=== PATIENT | female | born 1945 | race Caucasian/White ===

== ENCOUNTER 2023-02-28 15:51 | Inpatient (IN) | payer MEDICARE, OTHER ==
[2023-02-28] MEDS ORDERED: Acetaminophen 325 MG TAB PO PRN (18:22)
[2023-02-28] MEDS ORDERED: HYDROcodone/Acetaminophen 5/325 mg Tablet PO PRN (18:22)
[2023-02-28] MEDS ORDERED: Lactated Ringer's 1,000 ML IV SCH (18:30)
[2023-02-28] MEDS ORDERED: Piperacillin/Tazobactam 3.375 GM in Sodium Chloride 0.9% 100 ML IVPB SCH ×2 (18:30→20:00)
[2023-02-28 18:33] VITALS: BMI 26.3
[2023-02-28] MEDS ORDERED: Potassium Chloride 20 MEQ TAB PO SCH ×2 (19:15→21:00)
[2023-02-28] MEDS ORDERED: Gentamicin 360 MG in Sodium Chloride 0.9% 100 ML IVPB SCH (20:00)
[2023-02-28] MEDS: Sodium Chloride 0.9% 1,000 ML IV SCH (20:20)
[2023-02-28] MEDS: Clindamycin/D5W 900 MG in Premix 1 BAG IVPB SCH (22:38)
[2023-02-28] MEDS: Piperacillin/Tazobactam 3.375 GM in Sodium Chloride 0.9% 100 ML IVPB SCH (23:37)
[2023-03-01 05:19] LABS: #Eosinphils 0.2 10x3/uL (0.0-0.5); #Monocytes 0.3 10x3/uL (0.0-1.1); #Neutrophils 5.6 10x3/uL (1.5-8.4); %Basophils 0.3 % (0.0-2.0); %Eosinophils 2.6 % (0.0-6.0); %Lymphocytes 6.4 % (18.0-47.0); %Monocytes 4.4 % (0.0-10.0); %Neutrophils 85.7 % (40.0-75.0); Hemoglobin 9.3 g/dL (12.0-15.5); Mean Corpuscular HGB CONC 33.2 g/dL (32.0-36.0); Mean Corpuscular Hemoglobin 30.8 pg (27.0-33.0); Mean Corpuscular Volume 92.7 fl (81.6-98.3); Mean Platelet Volume 9.7 fl (7.4-10.4); Platelet Count 297 10x3/uL (150-450); RBC Distribution Width 13.5 % (11.5-14.5); Red Blood Cell (RBC) Count 3.02 10x6/uL (3.90-5.03); White Blood Cell (WBC) Count 6.6 10x3/uL (3.5-10.5)
[2023-03-01 05:28] LABS: Anion Gap 14 mmol/L (10-20); BUN (Urea Nitrogen) 8 mg/dL (9.8-20.1); Calc. Creatinine Clearance 79 mL/min (70-130); Calcium 7.7 mg/dL (7.8-10.44); Carbon Dioxide 22 mmol/L (23-31); Chloride 106 mmol/L (98-107); Estimated GFR 87; Gentamicin, Random 3.6 ug/mL (See Comment); Glucose 88 mg/dL (83-110); Potassium 3.9 mmol/L (3.5-5.1); Sodium 138 mmol/L (136-145)
[2023-03-01] MEDS: Sodium Chloride 0.9% 1,000 ML IV SCH ×3 (06:26→22:24)
[2023-03-01] MEDS: Clindamycin/D5W 900 MG in Premix 1 BAG IVPB SCH ×3 (06:28→22:23)
[2023-03-01] MEDS: Piperacillin/Tazobactam 3.375 GM in Sodium Chloride 0.9% 100 ML IVPB SCH ×2 (08:17→16:01)
[2023-03-01] MEDS: Gentamicin 360 MG in Sodium Chloride 0.9% 100 ML IVPB SCH (20:58)
[2023-03-02] MEDS: Piperacillin/Tazobactam 3.375 GM in Sodium Chloride 0.9% 100 ML IVPB SCH ×3 (00:05→16:36)
[2023-03-02] MEDS: Clindamycin/D5W 900 MG in Premix 1 BAG IVPB SCH ×3 (05:51→22:59)
[2023-03-02 08:50] LABS: #Eosinphils 0.2 10x3/uL (0.0-0.5); #Monocytes 0.3 10x3/uL (0.0-1.1); %Basophils 0.2 % (0.0-2.0); %Lymphocytes 10.3 % (18.0-47.0); %Neutrophils 80.5 % (40.0-75.0); Hematocrit 29.1 % (34.9-44.5); Hemoglobin 9.3 g/dL (12.0-15.5); Mean Corpuscular Hemoglobin 29.9 pg (27.0-33.0); Mean Corpuscular Volume 93.6 fl (81.6-98.3); Mean Platelet Volume 9.3 fl (7.4-10.4); Platelet Count 301 10x3/uL (150-450); RBC Distribution Width 13.7 % (11.5-14.5); Red Blood Cell (RBC) Count 3.11 10x6/uL (3.90-5.03); White Blood Cell (WBC) Count 6.2 10x3/uL (3.5-10.5)
[2023-03-02 10:31] LABS: ALT (SGPT) 8 U/L (8-55); AST (SGOT) 17 U/L (5-34); Alkaline Phosphatase 79 U/L (40-110); Anion Gap 10 mmol/L (10-20); BUN (Urea Nitrogen) 6 mg/dL (9.8-20.1); Bilirubin, Total 0.7 mg/dL (0.2-1.2); Calc. Creatinine Clearance 74 mL/min (70-130); Calcium 7.9 mg/dL (7.8-10.44); Carbon Dioxide 25 mmol/L (23-31); Chloride 107 mmol/L (98-107); Estimated GFR 80; Globulin 2.6 g/dL (2.4-3.5); Glucose 109 mg/dL (83-110); Potassium 3.4 mmol/L (3.5-5.1); Protein, Total 5.6 g/dL (5.8-8.1); Sodium 139 mmol/L (136-145)
[2023-03-02] MEDS: Sodium Chloride 0.9% 1,000 ML IV SCH (13:48)
[2023-03-02] MEDS: Iron Polysaccharides Complex 150 MG CAP PO SCH ×2 (14:20→18:34)
[2023-03-02] MEDS: Gentamicin 360 MG in Sodium Chloride 0.9% 100 ML IVPB SCH (20:00)
[2023-03-03] MEDS: Piperacillin/Tazobactam 3.375 GM in Sodium Chloride 0.9% 100 ML IVPB SCH ×2 (00:28→08:42)
[2023-03-03] MEDS: Sodium Chloride 0.9% 1,000 ML IV SCH (05:50)
[2023-03-03] MEDS: Clindamycin/D5W 900 MG in Premix 1 BAG IVPB SCH ×2 (05:50→14:24)
[2023-03-03] MEDS: Iron Polysaccharides Complex 150 MG CAP PO SCH (08:42)
[2023-03-03 11:32] VITALS: BP 134/62; TEMP 97.9
== END 2023-03-03 18:00 | disposition home or self-care (01) | DRG 761 ==
LOC: CSHPP 17:06
PROVIDERS: ADMIT Obstetrics & Gynecology; ATTEND Obstetrics & Gynecology
DX: N93.9 Abnormal uterine and vaginal bleeding, unspecified (principal); E78.00 Pure hypercholesterolemia, unspecified; I10 Essential (primary) hypertension; Z90.49 Acquired absence of other specified parts of digestive tract; Z98.890 Other specified postprocedural states; Z90.710 Acquired absence of both cervix and uterus; Z79.899 Other long term (current) drug therapy
CPT/HCPCS: 36415; 80048; 80053; 80170; 85025; J1580; J2543; J3490; J7050